=== PATIENT | male | born 1970 | race Caucasian/White ===

== ENCOUNTER 2020-02-01 02:03 | Emergency (ER) | payer OTHER ==
[~2020-02-01] VITALS: Ht 182.9 cm; Wt 106.6 kg
--- NOTE | 2020-02-01 02:07 | NUR ---
BIB WHEELCHAIR TO ER BED 1
[2020-02-01 02:11] VITALS: BP 159/108
--- NOTE | 2020-02-01 02:15 | NUR ---
PT 49 Y/O MALE BIB SELF FOR C/O LETHARGY AND N/V X 1 HOUR AGO. PT STATES HE HAS BEEN NON- COMPLIANT WITH BP MEDICATIONS AND LAST TOOK MEDICATIONS X 2 DAYS AGO. CURRENT BP: 157/106. PT DENIES PAIN AT THIS TIME. "I JUST FEEL WEAK." PT LAST EPISDOE OF VOMITING X 40 MIN AGO. PT DENIES BLOOD IN EMISIS. PT DENIES DIARREAH. 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 BED LOCKED AND IN LOWEST POSTION. MEDHX: HTN ALLERGIES: NKA
--- NOTE | 2020-02-01 02:15 | NUR ---
PER FAMILY PT HAD SLURRED SPEECH 1 HOUR PRIOR TO ARRIVAL. PT CURRENTLY HAS CLEAR SPEECH. 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 PT SMILE SYMMETRICAL. PERRLA 3MM BRISK BILAT. ROM EQUAL AND STRONG. PT RECENT AND REMOTE MEMORY INTACT. PT AAO X4.
[2020-02-01] MEDS ORDERED: NACL 0.9% 1,000 ML IV SCH (02:22)
[2020-02-01] MEDS ORDERED: KETOROLAC 30 MG/ML VIAL IVP ONE (02:25)
[2020-02-01] MEDS ORDERED: ONDANSETRON 4 MG/2 ML VIAL IVP ONE (02:25)
--- NOTE | 2020-02-01 02:29 | NUR ---
LAB AT BEDSIDE.
--- NOTE | 2020-02-01 02:32 | NUR ---
IV PLACED IN R FA 20G. IV SITE IS PATENT.
[2020-02-01 02:39] LABS: BASOPHILS % (AUTO) 0.4 % (0.0-2.0); EOSINOPHILS # (AUTO) 0.1 K/uL (0-0.4); EOSINOPHILS % (AUTO) 1.2 % (0.0-4.0); HEMATOCRIT 37.3 % (36-52); HEMOGLOBIN 11.8 g/dL (12.0-18.0); LYMPHOCYTES # (AUTO) 1.8 K/uL (2.0-11.5); LYMPHOCYTES % (AUTO) 20.3 % (20.5-51.1); MEAN CORPUSCULAR HEMOGLOBIN 26 pg (27-31); MEAN CORPUSCULAR HGB CONC 32 g/dL (33-37); MEAN CORPUSCULAR VOLUME 83.1 fL (80-94); MONOCYTES # (AUTO) 0.8 K/uL (0.8-1.0); MONOCYTES % (AUTO) 9.3 % (1.7-9.3); NEUTROPHILS % (AUTO) 68.8 % (42.2-75.2); PLATELET COUNT (AUTO) 345 K/uL (140-450); RED CELL DISTRIBUTION WIDTH 14.9 % (11.6-13.7); WHITE BLOOD COUNT (AUTO) 8.8 K/uL (4.8-10.8)
--- NOTE | 2020-02-01 02:40 | NUR ---
TRAODOL 30MG GIVEN IVP AND ZOFRAN 4MG GIVEN IVP. IVF GIVEN 0.9% NS 1L RUNNING CONITNOUSLY. IV SITE IS PATENT. NO SWELLING OR C/O PAIN NOTED AT SITE.
[2020-02-01 03:01] LABS: ALBUMIN 3.2 g/dL (3.4-5.0); ANION GAP 11.5 (8-16); CARBON DIOXIDE 28.3 mmol/L (21-32); CREATININE 1.4 mg/dL (0.6-1.3); POTASSIUM 3.8 mmol/L (3.5-5.1); TOTAL BILIRUBIN 0.3 mg/dL (0.0-1.0)
--- NOTE | 2020-02-01 03:35 | NUR ---
PT CURRENT BP: 147/97. PT RESTING IN BED AND RESPONSIVE TO VERBAL STIMULI. RESPIRATIONS ARE EVEN AND UNLABORED. 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 PT DENIES CONTINUING FEELS OF NAUSEA AND OR PAIN 0/10. PT BED IS LOCKED AND IN LOWEST POSTION.
[2020-02-01] MEDS ORDERED: MECLIZINE 25 MG TAB PO ONE (04:00)
--- NOTE | 2020-02-01 04:07 | NUR ---
PT MEDICATED WITH MECLIZINE PO. TOLERATED WELL. FARIBAR
--- NOTE | 2020-02-01 04:10 | NUR ---
PT TAKEN TO CT VIA W/C.
[2020-02-01] MEDS ORDERED: ASPIRIN 81 MG TAB.CHEW PO ONE ×2 (05:10→06:45)
--- NOTE | 2020-02-01 05:15 | NUR ---
EKG BEING PERFORMED AT BEDSIDE.
--- NOTE | 2020-02-01 05:22 | NUR ---
PT SIGNED CONSENT FORM FOR TRANSFER.
--- NOTE | 2020-02-01 05:22 | NUR ---
ASPIRIN GIVE TO PT BY [facility] PER JACLYN MCCONNELL.
--- NOTE | 2020-02-01 06:30 | NUR ---
SPOKE WITH FROM [facility]. STATES TO ASK TO PRESCRIBE MORE ASA FOR PT. JACLYN MADE AWARE.
--- NOTE | 2020-02-01 07:17 | NUR ---
GAVE REPORT TO JESSICA NOBLE. CONTINUATION OF CARE.
--- NOTE | 2020-02-01 07:27 | NUR ---
PT A/OX4. NO RESPIRATORY DISTRESS. EUPNIC. CN II,III,IV,V,,VII,XII WNL.
--- NOTE | 2020-02-01 07:27 | NUR ---
PT RESTING IN BED, SIDE RAIL X1
--- NOTE | 2020-02-01 07:39 | NUR ---
GIVEN REPORT TO RINA RN-CHARGE NURSE FROM [facility]. PENDING ETA FOR TRANSPORT TO [facility].
--- NOTE | 2020-02-01 07:44 | NUR ---
AMBULANCE ETA 15 MINUTES. ER CHARGE NURSE RINA FROM [facility] NOTIFIED.
--- NOTE | 2020-02-01 08:55 | NUR ---
AMBULANCE TO C ENGINEER PT AT 0930 HOURS
--- NOTE | 2020-02-01 08:56 | NUR ---
PT RESTING IN BED, SIDE RAIL X1
--- NOTE | 2020-02-01 09:50 | NUR ---
[facility] at bedside to transfer the patient to [facility].
[2020-02-01 09:54] VITALS: BP 122/74
--- NOTE | 2020-02-01 09:54 | NUR ---
Patient to be transferred to [facility]. Is being transferred due to HIGHER LEVEL OF CARE. Receiving facility has accepting physician and available space. ER physician has signed transfer form. Patient or responsible democrat has agreed to transfer and signed form. Patient belongings inventoried and will be sent with patient. Copy of nursing notes, lab reports, EKG, Physicians Orders and X-rays to be sent with patient. Report called to [facility] - CHARGE NURSE at receiving facility. [facility] ambulance service has been called for transfer.
== END 2020-02-01 09:55 | disposition short-term general hospital (02) ==
LOC: MED 02:03
DX: G45.8 Other transient cerebral ischemic attacks and related syndromes (principal); R42 Dizziness and giddiness; I10 Essential (primary) hypertension
CPT/HCPCS: 36415; 70450; 80053; 83690; 85025; 93005; 96374; 96375; 99285; J1885; J2405; J7030; J8597